=== PATIENT | female | born 1970 | race African-American/Black ===

== ENCOUNTER → 2019-10-07 | Outpatient (CLI) | payer OTHER ==
[~2019-10-07] MED LIST: NEXIUM 40 MG CA40 M1 PO; PROTONIX40 M1 PO; SLOW FE142 MG PO
[2019-10-07 14:20] VITALS: BP 125/81
[2019-10-07 15:40] VITALS: BP 126/75
--- NOTE | 2019-10-07 15:45 | NUR ---
IN FOR 1ST INJECTAFER INFUSION FOR IRON DEFICIENCY ANEMIA. STATED FEELING WELL TODAY. ADMISSION HISTORY AND ASSESSMENT COMPLETED. MEDICATIONS RECONCILED. PATIENT HAS NO ALLERGIES. INFUSED INJECTAFER OVER 30 MINUTES AND TOLERATED WELL WITHOUT INCIDENT. OBSERVED FOR 30 MINUTES. POST VITAL SIGNS GOOD. REMOVED IV AND DISMISSED IN GOOD CONDITION. SCHEDULED TO RETURN NEXT MONDAY FOR 2ND INFUSION.
== END ==
LOC: OPONC 10:29
DX: D50.9 Iron deficiency anemia, unspecified (principal); K90.49 Malabsorption due to intolerance, not elsewhere classified
CPT/HCPCS: 95000

== ENCOUNTER → 2019-10-14 | Outpatient (CLI) | payer OTHER ==
[2019-10-14 14:22] VITALS: BP 121/68
[2019-10-14 15:50] VITALS: BP 130/79
--- NOTE | 2019-10-14 16:02 | NUR ---
IN FOR 2ND INJECTAFER INFUSION. PATIENT STATED HAD A BAD HEADACHE AFTER 1ST INFUSION FOR APPROXIMATELY 1 DAY AND THEN RESOLVED. PATIENT TOOK TYLENOL PRIOR TO TODAY'S INFUSION. TOLERATED INFUSION WITHOUT INCIDENT. OBSERVED FOR 30 MINUTES. POST BP STABLE. REMOVED IV AND DISMISSED IN GOOD CONDITION.
== END ==
LOC: OPONC 14:05
DX: D50.9 Iron deficiency anemia, unspecified (principal); K90.49 Malabsorption due to intolerance, not elsewhere classified
CPT/HCPCS: 95000

== ENCOUNTER → 2019-10-29 | Outpatient (CLI) | payer OTHER | LOC: BC 14:31 | DX: Z12.31 Encounter for screening mammogram for malignant neoplasm of breast (principal) ==

== ENCOUNTER → 2020-02-25 | Outpatient (CLI) | payer OTHER ==
[2020-02-25 12:08] LABS: ABSOLUTE NEUTROPHILS 2.3 thou/uL (1.4-8.2); BASOPHILS 0.8 % (0.0-2.0); HEMATOCRIT 40.4 % (37.0-47.0); HEMOGLOBIN 13.4 gm/dL (12.0-15.0); LYMPHOCYTES 43.1 % (24.0-44.0); MCH 28.2 pg (26.0-34.0); MCHC 33.3 g/dL (28.0-37.0); MCV 84.6 fL (80.0-100.0); MONOCYTES 6.5 % (1.0-8.0); PLATELET COUNT 286 thou/uL (150-400); POLYS 47.6 % (36.0-66.0); RBC 4.77 mil/uL (4.20-5.00); RDW 12.7 % (10.5-14.5); WBC 4.9 thou/uL (4.0-11.0)
[2020-02-25 12:17] LABS: CALCIUM 9.3 mg/dL (8.5-10.1); CREATININE 0.9 mg/dL (0.6-1.0); POTASSIUM 4.1 mmol/L (3.5-5.1); TOTAL BILIRUBIN 0.4 mg/dL (0.2-1.0); TOTAL PROTEIN 7.3 g/dL (6.4-8.2)
[2020-02-25 12:41] LABS: FOLIC ACID 17.3 ng/mL (8.6-58.9); TSH 3.66 uIU/mL (0.358-3.740)
== END ==
LOC: LABMALL 11:21
PROVIDERS: ATTEND Nurse Practitioner
DX: D50.8 Other iron deficiency anemias (principal); R53.83 Other fatigue; K58.0 Irritable bowel syndrome with diarrhea; G43.109 Migraine with aura, not intractable, without status migrainosus

== ENCOUNTER → 2020-02-28 | Outpatient (CLI) | payer OTHER ==
[~2020-02-28] VITALS: Ht 167.6 cm; Wt 77.6 kg
--- NOTE | 2020-03-02 09:17 | P ---
[facility] [place] [place] [address] PROCEDURE REPORT Name: NATALIIA SOUZA Room #: REG MING Brandt#: [id number] Admission: 02/28/20 Attend Phys: Geremias Lawson Discharge: Date of : 66 Report #: [id number] THIS REPORT FOR: cc: Kishan Forde MD, Rene P. MD McElhinney, Christian C. MD ~ CC: Geremias Irene Henny Khris Forde MD DATE OF SERVICE: 02/28/2020 PROCEDURE PERFORMED: Colonoscopy. HISTORY OF PRESENT ILLNESS: The patient is a 49-year-old female with history of anemia, gastroesophageal reflux disease. Upper endoscopy was just performed, last colonoscopy was in 2011. The patient does have a history of a small amount of bright red blood per rectum with wiping at times, also with a family history of colon cancer in her grandmother. DESCRIPTION OF PROCEDURE: The risks and benefits of the procedure were explained to the patient, those risks including but not limited to bleeding, perforation and the risk of sedation. She understood these risks and gave informed consent. Sedation was given using propofol per anesthesia. Next, a digital rectal exam was initially performed, which was normal. Next, using a standard Olympus colonoscope, the scope was placed in the patient's anus and advanced under direct vision to the cecum. The overall prep was excellent. The cecum and ileocecal valve were normal in appearance. The ascending, transverse, descending and sigmoid colon were normal. The rectal mucosa was normal. On retroflexion, small nonbleeding internal hemorrhoids were noted, otherwise normal colonoscopy. The scope was then withdrawn and the procedure terminated. The patient tolerated the procedure well. IMPRESSION: 1. Small internal hemorrhoids, nonbleeding. 2. Otherwise, normal colonoscopy. RECOMMENDATIONS: Repeat colonoscopy in 5 years. Thank you for allowing me to participate in her care. <ELECTRONICALLY SIGNED> By: Geremias Irene MD 03/02/20 0917 1005 [id number] Geremias Irene MD /nt
--- NOTE | 2020-03-02 09:17 | P ---
[facility] [place] [address] PROCEDURE REPORT Name: NATALIIA SOUZA Room #: REG ELÍASEmerita Carlton#: [id number] Admission: 02/28/20 Attend Phys: Geremias Lawson Discharge: Date of : 66 Report #: [id number] THIS REPORT FOR: cc: Kishan Forde MD, Rene P. MD McElhinney, Christian C. MD ~ CC: Geremias Forde MD DATE OF SERVICE: 02/28/2020 PROCEDURE PERFORMED: Upper endoscopy with biopsies. HISTORY OF PRESENT ILLNESS: The patient is a 49-year-old female who was seen by myself in the office for the first time on 11/12/2019 for a history of anemia. She also has a previous history of gastric ulcer, reportedly even on PPI therapy. She was seen by Dr. Alcaraz in December of 2014 and an antral ulcer was noted. No evidence of bleeding at that time. Biopsies at that time were negative for H. pylori. Her last colonoscopy was performed in 2011. She does have a family history of colon cancer in a grandmother. She does report a small amount of bright red blood per rectum at times. Hemoglobin most recently at that time was 12 range, although she has had a hemoglobin in the 5 range in the past. In the past, she was taking Aleve on a p.r.n. basis. The plan is for EGD and colonoscopy today. DESCRIPTION OF PROCEDURE: The risks and benefits of the procedure were explained to the patient, those risks including but not limited to bleeding, perforation and the risk of sedation. She understood these risks and gave informed consent. Sedation was given using propofol per Anesthesia. Next, using a standard Olympus upper endoscope, the scope was placed in the patient's mouth and advanced under direct vision through the esophagus, stomach and into the second portion of the duodenum. The esophagus was normal throughout. The GE junction was normal. Upon entering the stomach, there were a few small tiny areas of bright red blood. Upon washing, it was noted that she has multiple small linear gastric ulcerations in the body of the stomach. There was no significant active bleeding. Larger ulcers were also noted in the gastric antrum, one was clean white base, no signs of bleeding and it was approximately 1.2 cm in length. A few smaller 5 mm ulcers were noted in the antrum. A clean white based ulcer was also noted in the pyloric channel, no evidence of bleeding. The duodenal bulb, first and second portion were all normal. Random biopsies were obtained to rule out celiac sprue. Gastric biopsies were also obtained today to rule out H. pylori. At this point, the scope was then withdrawn and the procedure terminated. The patient tolerated the procedure well. [address] [address] PROCEDURE REPORT Name: NATALIIA SOUZA Room #: REG MING Carlton#: [id number] Admission: 02/28/20 Attend Phys: Geremias Lawson Discharge: Date of : 66 Report #: [id number] IMPRESSION: Multiple small linear gastric ulcers. Traces of a small amount of bright red blood, none of which were actively bleeding at this time. Larger ulcers noted in the gastric antrum as well as the pyloric channel, no active bleeding. Otherwise, normal upper endoscopy. RECOMMENDATIONS: 1. Await biopsy results. 2. Continue PPI therapy b.i.d. 3. We will discuss further with the patient to see if she is taking any NSAIDs on a regular basis. We will also add Carafate at this time and then plan for colonoscopy next today. Thank you for allowing me to participate in her care. <ELECTRONICALLY SIGNED> By: Geremias Irene MD 03/02/20 0917 1003 1014 Geremias Irene MD /nt
--- NOTE | 2020-03-02 17:07 | PATH ---
[facility] [place] [place] [address] PATHOLOGY RPT PROCEDURE Name: NATALIIA BARBOSA Room #: REG MING Brandt#: [id number] Admission: 02/28/20 Date of : 66 Discharge: Report #: [id number] Path Case #: [id number] [facility] Accession Number: [id number] . 01 Material submitted: . PART A: duodenum - BX OF DUODENAL PART B: stomach - GASTRIC BX . 01 Clinical history: . History of polyps, history of anemia, acid reflux A. Rule out sprue B. Rule out H. pylori . 02 Diagnosis: A. Small bowel mucosa, duodenum R/O sprue, endoscopic biopsy: - No diagnostic abnormalities present. - Negative for villous blunting or increase in intraepithelial lymphocytes. . B. Gastric mucosa, gastric R/O H. pylori, endoscopic biopsy: - Mild reactive gastropathy. - Negative for intestinal metaplasia or atrophy. - Negative for Helicobacter pylori (properly controlled immunohistochemical stain performed). (IUV:romaine; 03/02/2020) QMS 03/02/2020 1351 Local . 02 Electronically signed: . Rubi Quintero MD, Pathologist NPI- [id number] . 01 Gross description: . A. The specimen is received in formalin, labeled "Familia Diannejeanette, BX of duodenal" and consists of 4 fragments of pink-moran tissue measuring 1.1 x 0.8 x 0.3 cm in aggregate which are entirely submitted in A1. . B. The specimen is received in formalin, labeled "BarbosaNataliia, gastric BX" and consists of 3 fragments of pink-moran tissue measuring between 0.3 x 0.2 cm and 0.7 x 0.3 cm which are entirely submitted in B1. (SDY; 02/28/2020) SYU/SYU 02/28/2020 1605 Local . 02 Pathologist provided ICD-10: K31.9, Z86.010, K21.0 . 02 CPT . 227938, [id number], [id number] [place] [address] PATHOLOGY RPT PROCEDURE Name: NATALIIA BARBOSA Room #: REG MING Carlton#: [id number] Admission: 02/28/20 Date of : 66 Discharge: Report #: [id number] Path Case #: [id number] Specimen Comment: A courtesy copy of this report has been sent to [phone], [phone] Specimen Comment: [phone] Specimen Comment: Report sent to ,DR GOODWIN / DR ARENAS Performed at: [address], [place] [id number] MD Harsha Morrow MD Phone: [phone] Performed at: [address] [id number] MD Rubi Quintero MD Phone: [phone]
== END | disposition home or self-care (01) ==
LOC: GI 01-03 09:16
PROVIDERS: ATTEND Specialist
DX: K62.5 Hemorrhage of anus and rectum (principal); K31.9 Disease of stomach and duodenum, unspecified; D64.9 Anemia, unspecified; K25.4 Chronic or unspecified gastric ulcer with hemorrhage; K64.8 Other hemorrhoids; K21.9 Gastro-esophageal reflux disease without esophagitis; Z98.890 Other specified postprocedural states; Z79.899 Other long term (current) drug therapy; Z11.59 Encounter for screening for other viral diseases; Z90.49 Acquired absence of other specified parts of digestive tract; Z90.710 Acquired absence of both cervix and uterus
CPT/HCPCS: 62110; 62900

== ENCOUNTER → 2020-03-27 | Outpatient (CLI) | payer OTHER | LOC: RAD 09:47 | PROVIDERS: ATTEND Nurse Practitioner | DX: M54.16 Radiculopathy, lumbar region (principal); M54.30 Sciatica, unspecified side; Z90.49 Acquired absence of other specified parts of digestive tract ==

== ENCOUNTER → 2020-07-20 | Outpatient (CLI) | payer OTHER | LOC: CAT 12:43 | PROVIDERS: ATTEND Nurse Practitioner | DX: I70.8 Atherosclerosis of other arteries (principal); R10.9 Unspecified abdominal pain; K62.5 Hemorrhage of anus and rectum ==

== ENCOUNTER 2020-07-21 08:41 | Emergency (ER) | payer OTHER ==
[~2020-07-21] VITALS: Ht 167.6 cm; Wt 78.5 kg
[2020-07-21 09:14] LABS: URINE BILIRUBIN NEGATIVE (Negative); URINE BLOOD TRACE (Negative); URINE CLARITY CLEAR; URINE COLOR YELLOW; URINE GLUCOSE-RANDOM* NEGATIVE (Negative); URINE KETONES NEGATIVE (Negative); URINE NITRITE-REFLEX NEGATIVE (Negative); URINE PROTEIN (DIPSTICK) NEGATIVE (Negative); URINE SPECIFIC GRAVITY 1.015 (1.005-1.035); URINE UROBILINOGEN 0.2 E.U./dl (0.2-1.0)
[2020-07-21 09:15] LABS: URINE LEUKOCYTES-REFLEX 1+ (Negative)
[2020-07-21 09:35] LABS: CASTS None Seen /LPF (None Seen); SQUAMOUS 0-3 Few /LPF (0-3)
[2020-07-21 09:36] LABS: BACTERIA-REFLEX None Seen /HPF (None Seen); CRYSTALS None Seen /LPF (None Seen); URINE RBC 0-2 Rare /HPF (0-2); URINE WBC-REFLEX 0-5 Rare /HPF (0-5)
[2020-07-21 09:55] LABS: ABSOLUTE NEUTROPHILS 2.3 thou/uL (1.4-8.2); BASOPHILS 1.2 % (0.0-2.0); EOSINOPHILS 2.4 % (0.0-3.0); HEMATOCRIT 39.6 % (37.0-47.0); HEMOGLOBIN 13.3 gm/dL (12.0-15.0); LYMPHOCYTES 43.7 % (24.0-44.0); MCH 27.2 pg (26.0-34.0); MCHC 33.5 g/dL (28.0-37.0); MCV 81.2 fL (80.0-100.0); MONOCYTES 6.5 % (1.0-8.0); PLATELET COUNT 272 thou/uL (150-400); POLYS 46.2 % (36.0-66.0); RBC 4.87 mil/uL (4.20-5.00); RDW 13.1 % (10.5-14.5); WBC 4.9 thou/uL (4.0-11.0)
[2020-07-21 09:57] LABS: CALCIUM 9.1 mg/dL (8.5-10.1)
[2020-07-21 10:03] LABS: TOTAL BILIRUBIN 0.3 mg/dL (0.2-1.0); TOTAL PROTEIN 7.6 g/dL (6.4-8.2)
[2020-07-21 10:33] VITALS: BP 132/81
== END 2020-07-21 10:38 | disposition home or self-care (01) ==
LOC: ER 08:41
PROVIDERS: Emergency Medicine
DX: K92.1 Melena (principal); K21.9 Gastro-esophageal reflux disease without esophagitis; Z90.49 Acquired absence of other specified parts of digestive tract; Z90.710 Acquired absence of both cervix and uterus; Z79.899 Other long term (current) drug therapy

== ENCOUNTER → 2020-12-15 | Outpatient (CLI) | payer OTHER | LOC: LAB 14:22 | PROVIDERS: ATTEND Nurse Practitioner | DX: R05 Cough (principal); E78.5 Hyperlipidemia, unspecified; E04.1 Nontoxic single thyroid nodule; Z20.822 Contact with and (suspected) exposure to COVID-19 ==

== ENCOUNTER → 2020-12-16 | Outpatient (CLI) | payer OTHER ==
[2020-12-16 09:23] LABS: ANION GAP 9 mmol/L (7-16); BUN 16 mg/dL (7-18); CALCIUM 9.6 mg/dL (8.5-10.1); CHLORIDE 106 mmol/L (98-107); CHOLESTEROL 223 mg/dL (<200); CO2 26 mmol/L (21-32); GLUCOSE 88 mg/dL (74-106); HDL CHOLESTEROL 56 mg/dL (>40); LDL CHOLESTEROL 147 mg/dL (<100); SODIUM 141 mmol/L (136-145); TRIGLYCERIDE 102 mg/dL (<150); VLDL 20 mg/dL (<40)
== END ==
LOC: LAB 06:27
PROVIDERS: ATTEND Nurse Practitioner
DX: E04.1 Nontoxic single thyroid nodule (principal); E78.5 Hyperlipidemia, unspecified

== ENCOUNTER → 2021-02-23 | Outpatient (CLI) | payer OTHER ==
[2021-02-23 09:16] LABS: CHOLESTEROL 208 mg/dL (<200); DIRECT BILIRUBIN < 0.1 mg/dL (<0.1-0.2); HDL CHOLESTEROL 59 mg/dL (>40); LDL CHOLESTEROL 133 mg/dL (<100); SGOT 22 U/L (15-37); SGPT 20 U/L (30-65); TC:HDL 3.5 Ratio (Not establshd); TOTAL BILIRUBIN 0.4 mg/dL (0.2-1.0); TOTAL PROTEIN 7.4 g/dL (6.4-8.2); TRIGLYCERIDE 81 mg/dL (<150); VLDL 16 mg/dL (<40)
== END ==
LOC: LAB 08:12
PROVIDERS: ATTEND Nurse Practitioner
DX: E78.2 Mixed hyperlipidemia (principal)

== ENCOUNTER → 2021-05-06 | Outpatient (CLI) | payer OTHER | LOC: RAD 15:03 | PROVIDERS: ATTEND Nurse Practitioner | DX: Z12.31 Encounter for screening mammogram for malignant neoplasm of breast (principal) ==

== ENCOUNTER → 2021-05-28 | Outpatient (CLI) | payer OTHER ==
[2021-05-28 09:31] LABS: ABSOLUTE NEUTROPHILS 3.4 thou/uL (1.4-8.2); BASOPHILS 1.1 % (0.0-2.0); EOSINOPHILS 1.9 % (0.0-3.0); HEMATOCRIT 39.1 % (37.0-47.0); HEMOGLOBIN 12.5 gm/dL (12.0-15.0); LYMPHOCYTES 33.6 % (24.0-44.0); MCH 26.5 pg (26.0-34.0); MCHC 31.9 g/dL (28.0-37.0); MCV 82.9 fL (80.0-100.0); MONOCYTES 8.6 % (1.0-8.0); PLATELET COUNT 263 thou/uL (150-400); POLYS 54.8 % (36.0-66.0); RBC 4.72 mil/uL (4.20-5.00); WBC 6.3 thou/uL (4.0-11.0)
[2021-05-28 09:47] LABS: ALBUMIN 3.7 g/dL (3.4-5.0); ANION GAP 6 mmol/L (7-16); BUN 11 mg/dL (7-18); CHLORIDE 106 mmol/L (98-107); CHOLESTEROL 215 mg/dL (<200); CO2 29 mmol/L (21-32); CREATININE 1.2 mg/dL (0.6-1.0); GLUCOSE 81 mg/dL (74-106); HDL CHOLESTEROL 57 mg/dL (>40); LDL CHOLESTEROL 137 mg/dL (<100); POTASSIUM 3.8 mmol/L (3.5-5.1); SGOT 29 U/L (15-37); SGPT 31 U/L (30-65); SODIUM 141 mmol/L (136-145); TC:HDL 3.8 Ratio (Not establshd); TOTAL BILIRUBIN 0.3 mg/dL (0.2-1.0); TOTAL PROTEIN 7.2 g/dL (6.4-8.2); TRIGLYCERIDE 106 mg/dL (<150); VLDL 21 mg/dL (<40)
== END ==
LOC: LAB 07:02
PROVIDERS: ATTEND Nurse Practitioner
DX: Z00.00 Encounter for general adult medical examination without abnormal findings (principal); K25.4 Chronic or unspecified gastric ulcer with hemorrhage

== ENCOUNTER → 2021-06-07 | Outpatient (CLI) | payer OTHER ==
[~2021-06-07] MED LIST changes: -PROTONIX40 M1 PO; +PROTONIX40 M2 PO
== END ==
LOC: LAB 11:19
PROVIDERS: Student in an Organized Health Care Education/Training Program; ATTEND Specialist
DX: Z01.812 Encounter for preprocedural laboratory examination (principal); Z20.822 Contact with and (suspected) exposure to COVID-19

== ENCOUNTER → 2021-06-09 | Outpatient (CLI) | payer OTHER ==
[~2021-06-09] VITALS: Ht 167.6 cm; Wt 78.0 kg
--- NOTE | 2021-06-10 16:41 | P ---
[facility] [place] [address] PROCEDURE REPORT Name: NATALIIA SOUZA Room #: REG MING CedenoGersonRayrayGerson#: [id number] Admission: 06/09/21 Attend Phys: Geremias Lawson Discharge: Date of : 66 Report #: [id number] THIS REPORT FOR: cc: Henny Pinedo DNP, Mary E. DNP McElhinney, Christian C. MD ~ cc: PASQUALE De Rene P. Bollier, MD DATE OF SERVICE: 06/09/2021 PROCEDURE PERFORMED: Flexible sigmoidoscopy. HISTORY OF PRESENT ILLNESS: The patient is a 50-year-old female with a history of intermittent bright red blood per rectum, can be mixed in with the stool or with wiping. She denies any other symptoms in general. She underwent a colonoscopy by myself in February 2020 in which small internal hemorrhoids were noted, otherwise normal. We discussed bleeding in July of last year and she continues to have this intermittently. Therefore, plan is for a flexible sigmoidoscopy today. DESCRIPTION OF PROCEDURE: The risks and benefits of the procedure were explained to the patient, those risks including but not limited to bleeding, perforation and the risk of sedation. She understood these risks and gave informed consent. Sedation was given using propofol per Anesthesia. Next, a digital rectal exam was initially performed, which was normal. Next, using a standard Olympus colonoscope, the scope was placed in the patient's anus and advanced under direct vision into the ascending colon. The overall prep was excellent. The ascending, transverse, descending and sigmoid colon were all normal. The rectal mucosa was normal. On retroflexion, small nonbleeding internal hemorrhoids were noted. Close examination of the anal canal also showed a tiny small anal fissure. No evidence of bleeding, otherwise normal. The scope was then withdrawn and the procedure terminated. The patient tolerated the procedure well. IMPRESSION: Small internal hemorrhoids and tiny anal fissure, likely sources of recent bright red blood per rectum. No evidence of bleeding at this time. Otherwise, normal flexible sigmoidoscopy. RECOMMENDATIONS: 1. Reassurance. 2. Analpram on a p.r.n. basis. [facility] [address] [place] [address] PROCEDURE REPORT Name: NATALIIA SOUZA Room #: REG Emerita Brandt#: [id number] Admission: 06/09/21 Attend Phys: Geremias Lawson Discharge: Date of : 66 Report #: [id number] Thank you for allowing me to participate in her care. <ELECTRONICALLY SIGNED> By: Geremias Irene MD 06/10/21 1641 1153 846 Geremias Irene MD /nt
== END | disposition home or self-care (01) ==
LOC: GI 09:57
PROVIDERS: ATTEND Specialist
DX: K92.1 Melena (principal); K64.8 Other hemorrhoids; K60.2 Anal fissure, unspecified; K21.9 Gastro-esophageal reflux disease without esophagitis; Z98.890 Other specified postprocedural states; Z79.899 Other long term (current) drug therapy; Z90.710 Acquired absence of both cervix and uterus; Z90.49 Acquired absence of other specified parts of digestive tract
CPT/HCPCS: 62110; 62900

== ENCOUNTER → 2021-09-03 | Outpatient (CLI) | payer OTHER | LOC: SJCVCIMAG 13:50 | PROVIDERS: ATTEND Internal Medicine Cardiovascular Disease | DX: R00.2 Palpitations (principal) ==